=== PATIENT | female | born 1985 ===

== ENCOUNTER 2021-01-23 17:06 | Emergency (ER) | payer SELFPAY ==
[~2021-01-23] VITALS: Ht 167.6 cm; Wt 87.1 kg
[2021-01-23 17:10] VITALS: BP 146/81
[2021-01-23 18:03] LABS: Urine Bacteria FEW /hpf (None Seen); Urine Blood Negative /uL (Negative); Urine Specific Gravity 1.022 (1.001-1.035); Urine WBC 1 /hpf (0 - 5)
== END 2021-01-23 21:38 | disposition left against medical advice (07) ==
LOC: ER 17:06
DX: M54.59 Other low back pain (principal); R30.0 Dysuria; Z53.21 Procedure and treatment not carried out due to patient leaving prior to being seen by health care provider
CPT/HCPCS: 81001; 81025

== ENCOUNTER 2021-06-02 21:28 | Emergency (ER) | payer BC ==
[~2021-06-02] VITALS: Ht 167.6 cm; Wt 90.7 kg
[2021-06-02 21:32] VITALS: BP 137/83
== END 2021-06-03 00:58 | disposition left against medical advice (07) ==
LOC: ER 21:28
DX: M25.571 Pain in right ankle and joints of right foot (principal); W18.30XA Fall on same level, unspecified, initial encounter; Y93.89 Activity, other specified; Y92.9 Unspecified place or not applicable; Y99.8 Other external cause status
CPT/HCPCS: 73600